=== PATIENT | female | born 1980 | race Two or more races ===

== ENCOUNTER 2022-03-26 19:31 | Emergency (ER) | payer SELFPAY ==
[~2022-03-26] VITALS: Ht 165.1 cm; Wt 127.0 kg
[2022-03-26 20:21] LABS: Urine Bacteria MANY /hpf (None Seen); Urine Blood 3+ /uL (Negative); Urine Mucus FEW (None Seen); Urine Specific Gravity 1.016 (1.001-1.035); Urine WBC 1814 /hpf (0 - 5); Urine WBC Clumps PRESENT /hpf (None Seen)
== END 2022-03-27 02:25 | disposition left against medical advice (07) ==
LOC: ER 19:33
DX: R50.9 Fever, unspecified (principal); R09.81 Nasal congestion; Z53.21 Procedure and treatment not carried out due to patient leaving prior to being seen by health care provider
CPT/HCPCS: 81001